=== PATIENT | female | born 1935 | race Caucasian/White ===

== ENCOUNTER → 2016-11-30 | Outpatient (CLI) | payer MEDICARE | END | disposition home or self-care (01) | LOC: CFH 09:23 | PROVIDERS: ATTEND Urology | DX: N20.0 Calculus of kidney (principal); N28.1 Cyst of kidney, acquired; N32.89 Other specified disorders of bladder | CPT/HCPCS: 74176 ==

== ENCOUNTER → 2018-07-14 | Outpatient (CLI) | payer MEDICARE, OTHER | END | disposition home or self-care (01) | LOC: CFH 14:14 | PROVIDERS: ATTEND Internal Medicine | DX: Z12.31 Encounter for screening mammogram for malignant neoplasm of breast (principal); Z13.820 Encounter for screening for osteoporosis; M85.88 Other specified disorders of bone density and structure, other site; Z78.0 Asymptomatic menopausal state | CPT/HCPCS: 77080; 77067 ==

== ENCOUNTER 2020-03-24 07:44 | Observation (INO) | payer MEDICARE ==
[~2020-03-24] VITALS: Ht 165.1 cm; Wt 63.8 kg
--- NOTE | 2020-03-24 08:32 | NUR ---
THIS IS A 84 YO F W/ C/O STERNAL CP THAT WOKE HER UP THIS MORNING. PT REPORTS DIZZINESS THIS MORNING THAT HAS RESOLVED. PT CONNECTED TO ALL MONITORING, MELISSA SOLORIO. CALL LIGHT IN REACH, FAMILY AT BEDSIDE, SIDE RAILS UPX2. PAULIE GUDINO AT BEDSIDE FOR ED EVAL.
[2020-03-24] MEDS ORDERED: ASPIRIN 81 MG TABLET CHEW PO ONE (09:00)
[2020-03-24 09:04] LABS: BASOPHILS # (AUTO) 0.02 x10^3/uL (0-0.1); BASOPHILS % (AUTO) 1 % (0-1); EOSINOPHILS # (AUTO) 0.12 x10^3/uL (0-0.4); EOSINOPHILS % (AUTO) 3 % (1-7); LYMPHOCYTES # (AUTO) 1.29 x10^3/uL (1-3.4); LYMPHOCYTES % (AUTO) 33 % (22-44); MD NO; MEAN CORPUSCULAR HEMOGLOBIN 29.8 pg (27.0-34.8); MEAN CORPUSCULAR HGB CONC 32.9 g/dL (32.4-35.8); MEAN CORPUSCULAR VOLUME 90.5 fL (80-100); MEAN PLATELET VOLUME 8.4 fL (7.4-10.4); MONOCYTES # (AUTO) 0.39 x10^3/uL (0.2-0.8); MONOCYTES % (AUTO) 10 % (2-9); NEUTROPHILS % (AUTO) 54 % (42-75); PLATELET COUNT 164 x10^3/uL (130-400); RED BLOOD COUNT 4.88 x10^6/uL (3.82-5.3); RED CELL DISTRIBUTION WIDTH 13.6 % (9.6-15.2)
[2020-03-24] MEDS ORDERED: ASPIRIN 81 MG TABLET CHEW ONE (09:10)
[2020-03-24 09:14] LABS: ALANINE AMINOTRANSFERASE 19 U/L (12-78); ALBUMIN 3.7 g/dL (3.4-5.0); ANION GAP 6 mmol/L (5-15); CALCIUM 8.9 mg/dL (8.5-10.1); CHLORIDE 111 mmol/L (98-107); CREATININE 1.12 mg/dL (0.55-1.02)
[2020-03-24] MEDS ORDERED: SOLI10TA2 PO (09:16)
[2020-03-24] MEDS ORDERED: B CO1TAB14 PO (09:16)
[2020-03-24] MEDS ORDERED: LOVA40TA2 PO (09:16)
[2020-03-24] MEDS ORDERED: QUIN20TA17 PO (09:16)
[2020-03-24 09:18] LABS: ALKALINE PHOSPHATASE 57 U/L (45-117); BILIRUBIN,TOTAL 0.6 mg/dL (0.2-1.0); TROPONIN I < 0.015 ng/mL (0.000-0.045)
--- NOTE | 2020-03-24 10:02 | NUR ---
PT RECLINED IN BED, NAD NOTED AT THIS TIME, PT USING CELL PHONE. DAUGHTER AT BEDSIDE. AWAITING REMAINING RESULTS AND PETAL SHAPER HAND CONSULT.
--- NOTE | 2020-03-24 11:08 | NUR ---
DISCUSSION WITH KWABENA AND PA REGARDING ADMISSION. AWAITING ORDERS. NAD NOTED IN PT AT THIS TIME. RESPIRATIONS EVEN AND UNLABORED ON RA. DAUGHTER REMAINS AT BEDSIDE. SIDE RAILS UP, CALL LIGHT IN REACH.
[2020-03-24] MEDS ORDERED: SODIUM CHLORIDE FLUSH 10ML SYR IVF PRN (11:30)
[2020-03-24] MEDS ORDERED: ONDANSETRON 2MG/ML, 2ML IVPush PRN (12:00)
[2020-03-24] MEDS ORDERED: ACETAMINOPHEN 325 MG TABLET PO PRN (12:00)
[2020-03-24] MEDS ORDERED: NITROGLYCERIN 0.4 MG/SPRAY SL PRN (12:00)
[2020-03-24] MEDS ORDERED: DOCUSATE 100 MG CAPSULE PO PRN (12:00)
[2020-03-24] MEDS ORDERED: FAMOTIDINE 20 MG TABLET PO PRN (12:00)
[2020-03-24] MEDS ORDERED: hydrALAzine 20 MG/ML, 1ML IVPush PRN (12:00)
[2020-03-24] MEDS ORDERED: NITROGLYCERIN 0.4 MG BOTTLE (25 TABS) SL PRN (12:00)
[2020-03-24] MEDS ORDERED: ENOXAPARIN 40 MG/0.4 ML SQ SCH (12:05)
[2020-03-24 12:48] LABS: FREE T4 (FREE THYROXINE) 0.93 ng/dL (0.76-1.46); TROPONIN I < 0.015 ng/mL (0.000-0.045)
[2020-03-24 12:56] LABS: CHOL/HDL RATIO 2.4; LDL/HDL RATIO 1.1 (0.5-3.0)
[2020-03-24 12:58] VITALS: BP 161/91
[2020-03-24 18:41] LABS: TROPONIN I < 0.015 ng/mL (0.000-0.045)
[2020-03-24 20:15] VITALS: BP 142/80
[2020-03-24] MEDS: QUINAPRIL 20MG TABLET PO SCH (20:25)
[2020-03-24] MEDS ORDERED: LOVASTATIN 40 MG TABLET PO SCH (21:00)
[2020-03-24] MEDS ORDERED: MELATONIN 5 MG TABLET PO PRN (21:00)
[2020-03-25 02:11] VITALS: BP 134/83
[2020-03-25] MEDS ORDERED: ASPIRIN 81 MG TABLET EC PO SCH (06:00)
[2020-03-25 07:19] VITALS: BP 184/92
[2020-03-25] MEDS ORDERED: REGADENOSON 0.4 MG/5 ML SYRINGE ONE (08:12)
[2020-03-25] MEDS ORDERED: ASCORBIC ACID 500 MG TABLET PO SCH (09:00)
[2020-03-25] MEDS ORDERED: TEMPLATE NON-FORMULARY MED. (Solifenacin Succinate** (Vesicare**) 10 MG) HOMEMEDPO SCH (09:00)
[2020-03-25 10:27] VITALS: BP 158/83
[2020-03-25] MEDS: QUINAPRIL 20MG TABLET PO SCH (10:29)
[2020-03-25] MEDS ORDERED: QUIN20TA PO (12:30)
[2020-03-25 12:31] VITALS: BP 164/90
[2020-03-25] MEDS ORDERED: ASPI81TA45 PO (12:31)
== END 2020-03-25 13:48 | disposition home or self-care (01) ==
LOC: ED 09:55 → SUATTDRO 11:16 → INTOOBSV 11:21 → EDIP 11:21 → 5SO 12:01 → DCLOUNGE 03-25 13:42
PROVIDERS: ADMIT Hospitalist; ATTEND Hospitalist
DX: R07.89 Other chest pain (principal); I11.0 Hypertensive heart disease with heart failure; I50.9 Heart failure, unspecified; R13.10 Dysphagia, unspecified; E78.5 Hyperlipidemia, unspecified; R32 Unspecified urinary incontinence; K21.9 Gastro-esophageal reflux disease without esophagitis; D72.819 Decreased white blood cell count, unspecified; R00.1 Bradycardia, unspecified; K44.9 Diaphragmatic hernia without obstruction or gangrene; I08.3 Combined rheumatic disorders of mitral, aortic and tricuspid valves; I77.819 Aortic ectasia, unspecified site; Z87.891 Personal history of nicotine dependence; Z87.440 Personal history of urinary (tract) infections; Z79.82 Long term (current) use of aspirin; Z79.899 Other long term (current) drug therapy
CPT/HCPCS: 36415; 71045; 74220; 78452; 80053; 80061; 83690; 83735; 84100; 84439; 84443; 84484; 85025; 93005; 93017; 93306; 93356; 99285; A9502; C9898; G0378; J2785